=== PATIENT | male | born 1960 | race Hispanic/Latino ===

== ENCOUNTER 2018-05-03 08:44 | Emergency (ER) | payer SELFPAY ==
[2018-05-03] MEDS ORDERED: ATIVAN PO ONE (10:06)
--- NOTE | 2018-05-03 10:18 | Emergency Department Report ---
ED Anxiety HPI - General Chief Complaint: Chest Pain Stated Complaint: CP Time Seen by Provider: 05/03/18 09:28 Source: patient, EMS Mode of arrival: Stretcher - History of Present Illness Initial Comments: 57-year-old male, inpatient from [facility] for suicidal ideations, presents to ED with complaint of anxiety. She initially reported chest pain, however states he is not having chest pain. Patient states, "I am feeling anxious, and I need Ativan like they gave me at that other hospital." Patient was seen was at [facility] 2 days ago for psychiatric evaluation. At that time, according to records that are provided today, it seems as though patient received multiple doses of Ativan. Patient appears calm, not tremulous, conversing normally with sitter that accompanied him from [place]. MD Complaint: anxiety -: This morning Symptoms: palpitations Previous History of Same: Yes Severity: mild Quality: constant Provoking factors: none known Improves With: medication (ativan) Associated symptoms: palpitations. denies: chest pain, shortness of breath ED Review of Systems ROS: Stated complaint: CP Other details as noted in HPI Comment: All other systems reviewed and negative Constitutional: denies: chills, fever Respiratory: denies: shortness of breath Cardiovascular: palpitations. denies: chest pain Psychiatric: anxiety ED Past Medical Hx - Past Medical History Previous Medical History?: Yes Hx Hypertension: Yes Hx Psychiatric Treatment: Yes (Depression, anxiety, ETOH abuse) Additional medical history: Hypothyroidism - Surgical History Past Surgical History?: No - Social History Smoking Status: Former Smoker Substance Use Type: Alcohol ED Physical Exam - General Limitations: No Limitations General appearance: alert, in no apparent distress - Head Head exam: Present: atraumatic, normocephalic - Eye Eye exam: Present: normal appearance - ENT ENT exam: Present: mucous membranes moist - Respiratory Respiratory exam: Present: normal lung sounds bilaterally. Absent: respiratory distress - Cardiovascular Cardiovascular Exam: Present: regular rate, normal rhythm - GI/Abdominal GI/Abdominal exam: Present: soft. Absent: distended - Extremities Exam Extremities exam: Present: normal inspection - Neurological Exam Neurological exam: Present: alert, oriented X3 - Psychiatric Psychiatric exam: Present: normal affect, normal mood - Skin Skin exam: Present: warm, dry, intact, normal color ED Course Vital Signs 01/15/19 01/15/19 09:00 09:30 Temperature 97.6 F Pulse Rate 100 H Respiratory 20 Rate Blood Pressure 144/105 [Left] O2 Sat by Pulse 97 Oximetry ED Medical Decision Making - Lab Data Result diagrams: 05/03/18 10:24 05/03/18 10:24 - EKG Data -: EKG Interpreted by Me EKG shows normal: sinus rhythm, axis, intervals, QRS complexes, ST-T waves Rate: tachycardia (rate 108) - EKG Data Interpretation: no acute changes Critical care attestation.: If time is entered above; I have spent that time in minutes in the direct care of this critically ill patient, excluding procedure time. ED Disposition Clinical Impression: Anxiety Disposition: DC-01 TO HOME OR SELFCARE Is pt being admited?: No Condition: Stable Instructions: Anxiety (ED) Time of Disposition: 11:13
[2018-05-03 10:37] LABS: Basophils # (Auto) 0.1 K/mm3 (0.0-0.1); Basophils % (Auto) 0.9 % (0.0-1.8); Eosinophils % (Auto) 0.4 % (0.0-4.3); Hematocrit 34.3 % (35.5-45.6); Hemoglobin 11.7 gm/dl (11.8-15.2); Lymphocytes # (Auto) 1.6 K/mm3 (1.2-5.4); Lymphocytes % (Auto) 25.3 % (13.4-35.0); Mean Corpuscular HGB Conc 34 % (32-34); Mean Corpuscular Volume 88 fl (84-94); Monocytes # (Auto) 0.6 K/mm3 (0.0-0.8); Monocytes % (Auto) 9.2 % (0.0-7.3); Platelet Count 258 K/mm3 (140-440); Red Blood Count 3.88 M/mm3 (3.65-5.03); Red Cell Distribution Width 19.4 % (13.2-15.2)
[2018-05-03 10:59] LABS: BUN/Creatinine Ratio 10; Blood Urea Nitrogen 7 mg/dL (9-20); Calcium 8.3 mg/dL (8.4-10.2); Hemolysis Index 5
[2018-05-03] MEDS ORDERED: K-DUR PO ONE (11:02)
[2018-05-03 11:34] VITALS: BP 128/88
== END 2018-05-03 12:47 | disposition home or self-care (01) ==
LOC: ED 08:44
DX: F41.9 Anxiety disorder, unspecified (principal); I10 Essential (primary) hypertension; F32.9 Major depressive disorder, single episode, unspecified; E03.9 Hypothyroidism, unspecified; Z87.891 Personal history of nicotine dependence
CPT/HCPCS: 36415; 80048; 84484; 85025; 93005; 93010; 99284